=== PATIENT | female | born 1990 | race Caucasian/White ===

== ENCOUNTER 2017-10-13 22:20 | Emergency (ER) | payer OTHER ==
[~2017-10-13] VITALS: Ht 165.1 cm; Wt 61.2 kg
[~2017-10-13 22:20] MED LIST: OCELLA TABLET1 EACH PO
[2017-10-13] MEDS ORDERED: SYNTHROID75 MCG (22:27)
[2017-10-13] MEDS ORDERED: CAMILA0.35 MG (22:28)
[2017-10-13] MEDS ORDERED: IMITREX 25 MG T25 M1 (22:29)
[2017-10-13 23:01] LABS: INFLUENZA B ANTIGEN None Detected (None Detect)
[2017-10-13] MEDS ORDERED: OSELB75 PO (23:05)
[2017-10-13] MEDS ORDERED: IBUPROFEN 800800 M1 PO (23:12)
[2017-10-13 23:21] VITALS: BP 108/71
== END 2017-10-13 23:22 | disposition home or self-care (01) ==
LOC: M.ERS 22:20
PROVIDERS: Nurse Practitioner Family
DX: J09.X2 Influenza due to identified novel influenza A virus with other respiratory manifestations (principal)